=== PATIENT | male | born 1945 | race Caucasian/White ===

== ENCOUNTER 2016-02-07 11:15 | Outpatient (RCR) | payer MEDICARE, OTHER ==
[~2016-02-07 11:15] MED LIST: ADVIL200 MG PO; CARAFATE S1 GM/10 ML PO; LIPITOR20 MG PO; OXY IR5 MG PO; PRINZIDE 12.5 M1 TAB PO; PROTONIX 40MG T40 MG PO; STOOL SOFTENER100 M2 PO; THORAZINE 225 MG/TAB PO; TOPROL XL 25MG25 MG PO; TYLENOL 325MG325 MG PO; ULTRAM 50MG TAB50 MG PO; XARELTO10 MG PO
== END 2016-04-23 | disposition home or self-care (01) ==
LOC: MKS.ESL.PT
DX: Z47.1 Aftercare following joint replacement surgery (principal)
CPT/HCPCS: G8978-GP; G8979-GP

== ENCOUNTER 2020-02-25 11:33 | Outpatient (CLI) | payer MEDICARE ==
[~2020-02-25] VITALS: Ht 177.8 cm; Wt 81.8 kg
[2020-02-25] VITALS (8 sets, daily range): BP systolic 90–112; BP diastolic 62–72; PULSE 64–70; TEMP 98.3
--- NOTE | 2020-02-25 14:00 | NUR ---
Pt tolerated BAM infusion well with no adverse reactions. pt was noted to have oxygen sats of 88% for most of the infusion. Joanne HAYDEN did call Dr. Carroll to report this and per Dr. Carroll I advised pt to monitor his condition closely and if he felt worse with increasing sob or increasing WOB he should present to the ER. I explained to the pt that his o2 sats were low now and his resp rate was high. pt denied feeling sob at rest despite his tachypnea and hypoxia. I encouraged pt to purchase a pulse oximeter to monitor his osygen saturations and if sats decreased further he should present to ER. Pt was escorted to his vehicle via wheelchair at time of departure. pt denied questions at this time.
[2020-02-27] MEDS ORDERED: PRINZIDE 12.5 M1 TAB PO (21:26)
[2020-03-05] MEDS ORDERED: ROBITUSSIN DM 105 ML PO (14:17)
[2020-03-05] MEDS ORDERED: DECADRON6 MG PO (14:17)
[2020-03-05] MEDS ORDERED: PEPCID 20MG TAB20 MG PO (14:18)
[2020-03-05] MEDS ORDERED: PROAIR HFA0.09 MG/AC IH (14:20)
== END 2020-02-25 14:20 | disposition home or self-care (01) ==
LOC: EUO 11:33
DX: U07.1 COVID-19 (principal)
CPT/HCPCS: J7050